=== PATIENT | male | born 1985 | race Caucasian/White ===

== ENCOUNTER 2017-01-04 08:58 | Emergency (ER) | payer MEDICAID ==
[~2017-01-04] VITALS: Ht 165.1 cm; Wt 68.5 kg
[~2017-01-04 08:58] MED LIST: AMO500 PO; CEPH-443 PO; IBUP800T25 PO; PROM5SYR2 PO
[2017-01-04 09:01] VITALS: Ht 165.1 cm; Wt 68.5 kg
[2017-01-04] MEDS ORDERED: morphine 4 MG/ML VIAL IV STA (09:32)
[2017-01-04] MEDS ORDERED: SOD CHLORIDE 0.9% 1,000 ML IV STA (09:32)
[2017-01-04] MEDS ORDERED: ONDANSETRON 4 MG INJ IV STA (09:32)
[2017-01-04] MEDS ORDERED: FAMOTIDINE 20 MG INJ IV STA (09:32)
[2017-01-04 10:01] LABS: BASOPHILS % 0.6 % (0.0-2.0); EOSINOPHILS # 0.1 10^3/ul (0.0-0.5); EOSINOPHILS % 1.4 % (0.0-7.0); HEMATOCRIT 43.7 % (42.0-52.0); HEMOGLOBIN 15.2 g/dl (14.0-18.0); LYMPHOCYTES # 2.1 10^3/ul (0.8-2.9); MEAN CORPUSCULAR HGB CONC 34.8 g/dl (32.0-37.0); MEAN PLATELET VOLUME 9.3 fl (7.4-10.4); MONOCYTE # 0.5 10^3/ul (0.3-0.9); MONOCYTES % 6.8 % (0.0-11.0); NEUTROPHIL # 4.4 10^3/ul (1.6-7.5); NEUTROPHILS % 61.9 % (39.0-77.0); PLATELET COUNT 361 10^3/UL (140-415); RED BLOOD COUNT 4.91 10^6/ul (4.70-6.10); WHITE BLOOD COUNT 7.1 10^3/ul (4.8-10.8)
[2017-01-04 10:29] LABS: ALANINE AMINOTRANSFERASE 61 IU/L (13-69); ALBUMIN 4.5 g/dl (3.3-4.9); ALBUMIN/GLOBULIN RATIO 1.25; ALKALINE PHOSPHATASE 108 IU/L (42-121); ANION GAP 23 (8-16); ASPARTATE AMINO TRANSFERASE 38 IU/L (15-46); BILIRUBIN,INDIRECT 0.8 mg/dl (0-1.1); BILIRUBIN,TOTAL 0.8 mg/dl (0.2-1.3); BLOOD UREA NITROGEN 18 mg/dl (7-20); CARBON DIOXIDE 27 mmol/L (21-31); CHLORIDE 98 mmol/L (97-110); CREATININE 0.88 mg/dl (0.61-1.24); GLUCOSE 103 mg/dl (70-220); SODIUM 144 mmol/L (135-144); TOTAL PROTEIN 8.1 g/dl (6.1-8.1)
--- NOTE | 2017-01-04 10:36 | RADRPT ---
PROCEDURE: US Abdomen. CLINICAL INDICATION: Abdominal Pain TECHNIQUE: Multiple real-time images were acquired of the patient's abdomen and retroperitoneum ut ilizing a high resolution transducer. COMPARISON: None FINDINGS: Visualized portions of the pancreatic head and proximal body are unremarkable. The liver is normal in size and contour without evidence of intrapelvic biliary dilatation. The gallbladder is normal without evidence of cholelithiasis, pericholecystic fluid or gallbladder w all thickening. The technologist reports a negative sonographic Canchola's sign. The common bile du ct is dilated measuring 9.9 mm. The right kidney is unremarkable without evidence of hydronephrosis or mass. Right kidney measures 9.6 cm in length. IMPRESSION: The common bile duct is dilated measuring 9.9 mm. There is no sonographic evidence of cholelithiasi s or choledocholithiasis. If indicated, MRCP could be performed for further evaluation. RPTAT:AAJJ Physician Patricia Date Time Electronically viewed and signed by Physician Patricia on 01/04/2017 10:35 DAISY/
[2017-01-04 10:46] LABS: URINE BLOOD (Dip) POC Negative (NEGATIVE)
--- NOTE | 2017-01-04 10:49 | RADRPT ---
PROCEDURE: CT Abdomen and pelvis without contrast. CLINICAL INDICATION: Abdominal pain TECHNIQUE: CT scan of the abdomen and pelvis without contrast was performed on a multidetector hig h-resolution CT scan. . Coronal and sagittal reformatted images were obtained from the axial [facility] e images. Standard CT scan of the abdomen pelvis without contrast protocols were performed. The total exam CTDI equals 6.83 mGy and the total exam DLP equals 416.86 mGy-cm. One or more of the following dose reduction techniques were used: - Automated exposure control. - Adjustment of the mA and/or kV according to patient size. Use of iterative reconstruction technique. COMPARISON: Abdominal ultrasound 01/04/2017 FINDINGS: The gallbladder is unremarkable. The common bile duct remains dilated with a maximal diameter of ap proximately 1 cm. No intrahepatic biliary ductal dilation. No evidence of choledocholithiasis. Th e pancreas appears unremarkable. Recommend clinical correlation and consideration of delete the MRC P for further evaluation. The liver spleen and adrenal glands are unremarkable. The kidneys are normal in size without calcif ied renal calculi hydronephrosis or intra renal masses bilaterally. The ureters and urinary bladder are unremarkable. The prostate is unremarkable. Negative for intra-abdominal free air, free fluid, abscesses or lymphadenopathy. The appendix is un remarkable. The stomach, small bowel and large bowel are unremarkable. The aorta is unremarkable. The abdominal and pelvic oakes are unremarkable. The lung bases are unr emarkable. There are degenerative changes lower thoracic and lumbar spine but no acute osseous findings are ost eoblastic/osteolytic lesions. IMPRESSION: 1. Persistent dilatation of the common bile duct without demonstration of choledocholithiasis or de finite intrahepatic biliary ductal dilation. The pancreas and gallbladder appear unremarkable. Rec ommend clinical correlation and consideration of MRCP for further evaluation. 2. Unremarkable appendix. No gastrointestinal disease. 3. Negative for urinary calcified calculi or obstructive uropathy. 4. No intra-abdominal free air fluid abscesses or lymphadenopathy. RPTAT:AAJJ Physician Dayanna Date Time Electronically viewed and signed by Physician Dayanna on 01/04/2017 10:49 BM/
[2017-01-04 10:52] LABS: TROPONIN-I < 0.012 ng/ml (0.00-0.12)
[2017-01-04] MEDS ORDERED: IBUP-1542 PO (10:58)
--- NOTE | 2017-01-08 06:30 | ERD ---
ER Documentation Chief Complaint Date/Time DATE: 01/08/17 TIME: 06:20 Chief Complaint abdominal pain this morning HPI This is a 31-year-old male presenting to emergency department with abdominal pain this morning. Patient states he woke up with pain to periumbilical and epigastric region this morning. Describes pain as sharp and rating pain 10/10. Denies pain radiating. No relieving or aggravating factors. No nausea or vomiting. No diarrhea or constipation. Patient states he took Pepto-Bismol at home without relief of symptoms. No past medical or surgical history. ROS All systems reviewed and are negative except as per history of present illness. Medications Home Meds Active Scripts Ibuprofen* (Motrin*) 600 Mg Tab, 600 MG PO Q6, #15 TAB Prov:GERMANIA WING ROPE LAYING MACHINE OPERATOR 01/04/17 Amoxicillin* (Amoxicillin*) 500 Mg Cap, 500 MG PO Q8, #30 CAP Prov:HEIDY FRAGA 05/11/16 Promethazine HCl/Codeine (Prometh-Codein 6.25-10 mg/5 ml) 5 Ml Syrup, 5 ML PO Q8 , #120 Prov:HEIDY FRAGA 05/11/16 Cephalexin* (Keflex*) 500 Mg Capsule, 500 MG PO QID for 5 Days, CAP Prov:KURTIS KIRBY ROPE LAYING MACHINE OPERATOR 08/28/15 Ibuprofen* (Motrin*) 800 Mg Tab, 800 MG PO Q6H Y for PAIN AND OR ELEVATED TEMP, #30 TAB Prov:KURTIS KIRBY. ROPE LAYING MACHINE OPERATOR 08/28/15 Reported Medications [None] No Conflict Check 09/25/11 Allergies Allergies: Coded Allergies: No Known Allergy (Unverified , 01/04/17) PMhx/Soc Medical and Surgical Hx: pt denies Medical Hx, pt denies Surgical Hx History of Surgery: No Anesthesia Reaction: No Hx Neurological Disorder: No Hx Respiratory Disorders: No Hx Cardiac Disorders: No Hx Psychiatric Problems: No Hx Miscellaneous Medical Probl: No Hx Alcohol Use: No Hx Substance Use: No Hx Tobacco Use: No Physical Exam Vitals Vital Signs Date Time Temp Pulse Resp B/P Pulse Ox O2 Delivery O2 Flow Rate FiO2 01/04/17 09:01 98.3 76 18 129/94 100 Physical Exam Const: alert, writhing in pain Head: Atraumatic Eyes: Normal Conjunctiva ENT: Normal External Ears, Nose and Mouth. Neck: Full range of motion..~ No meningismus. Resp: Clear to auscultation bilaterally. No wheezing, rhonchi or crackles. Cardio: Regular rate and rhythm, no murmurs Abd: Soft, non distended. Normal bowel sounds, tenderness to epigastric and periumbilical region. Negative Canchola sign. No rebound tenderness. Skin: No petechiae or rashes Back: No midline or flank tenderness Ext: No cyanosis, or edema Neur: Awake and alert Psych: Normal Mood and Affect Result Diagram: 01/04/1743 01/04/17 0943 Results 24 hrs Laboratory Tests Test 01/04/17 09:43 01/04/17 10:51 White Blood Count 7.110^3/ul Red Blood Count 4.9110^6/ul Hemoglobin 15.2g/dl Hematocrit 43.7% Mean Corpuscular Volume 89.0fl Mean Corpuscular Hemoglobin 31.0pg Mean Corpuscular Hemoglobin Concent 34.8g/dl Red Cell Distribution Width 14.0% Platelet Count 28380^3/UL Mean Platelet Volume 9.3fl Neutrophils % 61.9% Lymphocytes % 29.0% Monocytes % 6.8% Eosinophils % 1.4% Basophils % 0.6% Nucleated Red Blood Cells % 0.0/100WBC Neutrophils # 4.410^3/ul Lymphocytes # 2.110^3/ul Monocytes # 0.510^3/ul Eosinophils # 0.110^3/ul Basophils # 0.010^3/ul Nucleated Red Blood Cells # 0.010^3/ul Sodium Level 144mmol/L Potassium Level 4.0mmol/L Chloride Level 98mmol/L Carbon Dioxide Level 27mmol/L Anion Gap 23 Blood Urea Nitrogen 18mg/dl Creatinine 0.88mg/dl Glucose Level 103mg/dl Calcium Level 10.0mg/dl Total Bilirubin 0.8mg/dl Direct Bilirubin 0.00mg/dl Indirect Bilirubin 0.8mg/dl Aspartate Amino Transf (AST/SGOT) 38IU/L Alanine Aminotransferase (ALT/SGPT) 61IU/L Alkaline Phosphatase 108IU/L Troponin I < 0.012ng/ml Total Protein 8.1g/dl Albumin 4.5g/dl Globulin 3.60g/dl Albumin/Globulin Ratio 1.25 Lipase 73U/L Bedside Urine pH (LAB) 7.0 Bedside Urine Protein (LAB) Negative Bedside Urine Glucose (UA) Negative Bedside Urine Ketones (LAB) Negative Bedside Urine Blood Negative Bedside Urine Nitrite (LAB) Negative Bedside Urine Leukocyte Esterase (L Negative Current Medications Medications (Trade) Dose Ordered Sig/Ciro Route PRN Reason Start Time Stop Time Status Last Admin Dose Admin Sodium Chloride (NS) 1,000 ml @ 1,000 mls/hr Q1H STAT IV 01/04/17 09:32 01/04/17 10:31 DC 01/04/17 09:47 Morphine Sulfate (morphine) 4 mg ONCE STAT IV 01/04/17 09:32 01/04/17 09:35 DC 01/04/17 09:46 Ondansetron HCl (Zofran Inj) 4 mg ONCE STAT IV 01/04/17 09:32 01/04/17 09:35 DC 01/04/17 09:46 Famotidine (Pepcid Iv) 20 mg ONCE STAT IV 01/04/17 09:32 01/04/17 09:35 DC 01/04/17 09:46 Procedures/[place] [id number] Radiology Main Line: [phone] DIAGNOSTIC IMAGING REPORT Patient: VIRA SHARIF : 1985 Age: 31 Sex: M MR #: [id number] DOS: 01/04/17 0932 Ordering MD: GERMANIA WING NP Location: E Room/Bed: PROCEDURE: US Abdomen. CLINICAL INDICATION: Abdominal Pain TECHNIQUE: Multiple real-time images were acquired of the patient's abdomen and retroperitoneum utilizing a high resolution transducer. COMPARISON: None FINDINGS: Visualized portions of the pancreatic head and proximal body are unremarkable. The liver is normal in size and contour without evidence of intrapelvic biliary dilatation. The gallbladder is normal without evidence of cholelithiasis, pericholecystic fluid or gallbladder wall thickening. The technologist reports a negative sonographic Canchola's sign. The common bile duct is dilated measuring 9.9 mm. The right kidney is unremarkable without evidence of hydronephrosis or mass. Right kidney measures 9.6 cm in length. IMPRESSION: The common bile duct is dilated measuring 9.9 mm. There is no sonographic evidence of cholelithiasis or choledocholithiasis. If indicated, MRCP could be performed for further evaluation. [place] [address] Radiology Main Line: [phone] DIAGNOSTIC IMAGING REPORT Patient: VIRA SHARIF : 1985 Age: 31 Sex: M MR #: [id number] DOS: 01/04/17 0932 Ordering MD: GERMANIA WING NP Location: [facility] Room/Bed: PROCEDURE: CT Abdomen and pelvis without contrast. CLINICAL INDICATION: Abdominal pain TECHNIQUE: CT scan of the abdomen and pelvis without contrast was performed on a multidetector high-resolution CT scan. . Coronal and sagittal reformatted images were obtained from the axial source images. Standard CT scan of the abdomen pelvis without contrast protocols were performed. The total exam CTDI equals 6.83 mGy and the total exam DLP equals 416.86 mGy- cm. One or more of the following dose reduction techniques were used: - Automated exposure control. - Adjustment of the mA and/or kV according to patient size. Use of iterative reconstruction technique. COMPARISON: Abdominal ultrasound 01/04/2017 FINDINGS: The gallbladder is unremarkable. The common bile duct remains dilated with a maximal diameter of approximately 1 cm. No intrahepatic biliary ductal dilation. No evidence of choledocholithiasis. The pancreas appears unremarkable. Recommend clinical correlation and consideration of delete the MRCP for further evaluation. The liver spleen and adrenal glands are unremarkable. The kidneys are normal in size without calcified renal calculi hydronephrosis or intra renal masses bilaterally. The ureters and urinary bladder are unremarkable. The prostate is unremarkable. Negative for intra-abdominal free air, free fluid, abscesses or lymphadenopathy. The appendix is unremarkable. The stomach, small bowel and large bowel are unremarkable. The aorta is unremarkable. The abdominal and pelvic oakes are unremarkable. The lung bases are unremarkable. There are degenerative changes lower thoracic and lumbar spine but no acute osseous findings are osteoblastic/osteolytic lesions. IMPRESSION: 1. Persistent dilatation of the common bile duct without demonstration of choledocholithiasis or definite intrahepatic biliary ductal dilation. The pancreas and gallbladder appear unremarkable. Recommend clinical correlation and consideration of MRCP for further evaluation. 2. Unremarkable appendix. No gastrointestinal disease. 3. Negative for urinary calcified calculi or obstructive uropathy. 4. No intra-abdominal free air fluid abscesses or lymphadenopathy. EKG: As interpreted by myself and Dr. Winter Rate/Rhythm: Normal sinus rhythm with heart rate 66 bpm QRS, ST, T-waves: No changes consistent w/ acute ischemia Impression: No evidence of ischemia or arrhythmia MDM: This is a 31-year-old male presenting to emergency department with sudden abdominal pain starting this morning. Patient rating pain 10/10 to periumbilical and epigastric region. No nausea or vomiting. No fevers or chills. Labs drawn and IV access obtained. Patient given morphine 4 mg IV, Pepcid 20 mg IV and Zofran 4 mg IV. Patient also given 1 L normal saline IV fluid bolus. Labs show no significant anemia, infection or electrolyte imbalance. Lipase is normal. AST, ALT and alkaline phosphatase are normal. Troponin is negative. EKG shows normal sinus rhythm with heart rate 66 bpm. Gallbladder ultrasound reviewed by radiologist as common bile duct is dilated measuring 9.9 mm. There is no sonographic evidence of cholelithiasis or choledocholithiasis. CT abdomen and pelvis reviewed by radiologist as persistent dilatation of the common bile duct without demonstration of choledocholithiasis or definite intrahepatic biliary ductal dilation. The pancreas and gallbladder appear unremarkable. Unremarkable appendix. No gastrointestinal disease. Negative for urinary calcified calculi or obstructive uropathy. No intra-abdominal free air or fluid abscess or lymphadenopathy. Discussed findings with Dr. Dillon and we agree that because patient's labs appear normal and patient is not stable in ED, patient is appropriate for outpatient management and urgent follow-up with swim instructor. Upon reassessment of patient, patient states pain has improved significantly. No active vomiting while in the ED. Vitals remained stable. Patient remains afebrile. Differential diagnosis includes but not limited to acute AZ, pancreatitis, peptic ulcer disease, GERD, gastritis, cholelithiasis, choledocholithiasis and gastroparesis and functional dyspepsia. I doubt acute AZ due to patient's normal vital signs, patient denies chest pain , shortness of breath, difficulty breathing or heart palpitations. I doubt pancreatitis, choledocholithiasis or cholecystitis due to patient's normal lab results. Patient is appropriate for outpatient management and instructed to follow-up with primary care provider in the next 2-3 days for reassessment. Resources provided at discharge. Return to ED for any high fever, chest pain, difficulty breathing, shortness breath, wheezing, vomiting, diarrhea, abdominal pain or any new or worsening symptoms. Patient verbalizes understanding. All questions answered at discharge. Departure Diagnosis: Primary Impression: Abdominal pain Abdominal location: epigastric Qualified Code: R10.13 - Epigastric pain Condition: Stable Patient Instructions: Abdominal Pain Referrals: ALLEY GARCIA M.D. [facility] YOU HAVE RECEIVED A MEDICAL SCREENING EXAM AND THE RESULTS INDICATE THAT YOU DO NOT HAVE A CONDITION THAT REQUIRES URGENT TREATMENT IN THE EMERGENCY DEPARTMENT. FURTHER EVALUATION AND TREATMENT OF YOUR CONDITION CAN WAIT UNTIL YOU ARE SEEN IN YOUR DOCTORS OFFICE WITHIN THE NEXT 1-2 DAYS. IT IS YOUR RESPONSIBILITY TO MAKE AN APPOINTMENT FOR FOLOW-UP CARE. IF YOU HAVE A PRIMARY DOCTOR --you should call your primary doctor and schedule an appointment IF YOU DO NOT HAVE A PRIMARY DOCTOR YOU CAN CALL OUR PHYSICIAN REFERRAL HOTLINE AT IF YOU CAN NOT AFFORD TO SEE A PHYSICIAN YOU CAN CHOSE FROM THE FOLLOWING [facility] [address] [facility] [address] [facility] [address] [facility] [address] [facility] [address] [facility] [facility]. [address] [facility] YOU HAVE RECEIVED A MEDICAL SCREENING EXAM AND THE RESULTS INDICATE THAT YOU DO NOT HAVE A CONDITION THAT REQUIRES URGENT TREATMENT IN THE EMERGENCY DEPARTMENT. FURTHER EVALUATION AND TREATMENT OF YOUR CONDITION CAN WAIT UNTIL YOU ARE SEEN IN YOUR DOCTORS OFFICE WITHIN THE NEXT 1-2 DAYS. IT IS YOUR RESPONSIBILITY TO MAKE AN APPOINTMENT FOR FOLOW-UP CARE. IF YOU HAVE A PRIMARY DOCTOR --you should call your primary doctor and schedule and appointment IF YOU DO NOT HAVE A PRIMARY DOCTOR YOU CAN CALL OUR PHYSICIAN REFERRAL HOTLINE AT . IF YOU CAN NOT AFFORD TO SEE A PHYSICIAN YOU CAN CHOSE FROM THE FOLLOWING [facility] INSTITUTIONS: [facility] [address] [place] [address] [facility] [address] [place] [address] [facility] [address] [place] [address] Additional Instructions: Call your primary care doctor or Dr. Garcia TOMORROW for an appointment during the next 2-3 days.See the doctor sooner or return here if your condition worsens before your appointment time. Return to ED for any high fever, chest pain, difficulty breathing, shortness breath, wheezing, vomiting, diarrhea, abdominal pain or any new or worsening symptoms. GERMANIA WING NP Jan 08, 2017 06:30
[2017-01-08 16:11] LABS: URINE BLOOD (Dip) POC Negative (NEGATIVE)
== END 2017-01-04 11:41 | disposition home or self-care (01) ==
LOC: FTE 08:58
DX: R10.13 Epigastric pain (principal)
CPT/HCPCS: 36415; 74176; 76705; 80053; 81003; 83690; 84484; 85025; 93005; 96374; 96375; J7030; Z7502; J2270; J2405